=== PATIENT | female | born 1980 | race African-American/Black ===

== ENCOUNTER 2017-03-26 08:13 | Emergency (ER) | payer MEDICAID ==
[~2017-03-26] VITALS: Ht 165.1 cm; Wt 80.0 kg
[~2017-03-26 08:13] MED LIST: DIFL0.0512 LEFT EYE; MULTTAB67 PO; VIGA0.5D LEFT EYE
[2017-03-26 08:15] VITALS: BP 153/74; PULSE 78; RESP 16; TEMP 99.6; O2SAT 98
[2017-03-26] MEDS ORDERED: ONDANSETRON HCL 4 MG/2 ML VIAL IV PUSH ONE (08:45)
[2017-03-26] MEDS ORDERED: SODIUM CHLORIDE 0.9% FLUSH 10 ML FLUSH IVF PRN (08:45)
--- NOTE | 2017-03-26 08:45 | PD ---
HPI Chief Complaint: Headache Time Seen by Provider: 08:41 Travel History International Travel<30 days: No Contact w/Intl Traveler<30days: No Traveled to known affect area: No History of Present Illness HPI Patient is a 36-year-old female presenting to the emergency department for evaluation of headache, body aches, nausea, photophobia. Patient states her symptoms started yesterday, she denies any vomiting, diarrhea, abdominal pain, chest pain or shortness of breath, nasal congestion or sore throat. She states that she doesn't feel well overall. She reports a history of headaches but not consistent with what she is experiencing today. Patient states her headache is frontal and aching and she reports her pain is 8 out of 10. She denies any visual changes but is scheduled to have cataract surgery on her left eye tomorrow. PFSH Past Medical History Diminished Hearing: No Medical other: Yes (cataract in left eye) ?: Not LMP: 03/11/17 : 4 Para: 4 Tubal Ligation: Yes Past Surgical History Section: Yes (4) Gynecologic Surgery: Yes (bilateral tubal ligation) Social History Alcohol Use: Yes (on occasion) Tobacco Use: No Substance Use: No Allergies-Medications (Allergen,Severity, Reaction): Coded Allergies: No Known Allergies (Verified , 03/11/17) Reported Meds & Prescriptions Reported Meds & Active Scripts Active Vigamox Opth Drops (Moxifloxacin Opth Drops) 0.5 % Soln 1 Drop LEFT EYE QID Durezol Opth (Difluprednate Opth) 0.05% Emul 1 Drop LEFT EYE QID Reported Multiple Vitamin 1 Tab 1 Tab PO DAILY Review of Systems Except as stated in HPI: all other systems reviewed are Neg General / Constitutional: Positive: Fever, Chills HENT: Positive: Headaches, No: Sore Throat, Congestion Cardiovascular: No: Chest Pain or Discomfort Respiratory: No: Shortness of Breath Gastrointestinal: Positive: Nausea, No: Vomiting, Diarrhea, Abdominal Pain Genitourinary: No: Dysuria Musculoskeletal: Positive: Myalgias Neurologic: Positive: Weakness, No: Dizziness, Syncope Physical Exam Narrative GENERAL: Well-developed, well-nourished, alert female. Resting comfortably in no acute distress. SKIN: Focused skin assessment warm/dry. HEAD: Atraumatic. Normocephalic. EYES: Pupils equal and round. No scleral icterus. No injection or drainage. ENT: No nasal bleeding or discharge. Mucous membranes pink and moist. NECK: Trachea midline. No JVD. CARDIOVASCULAR: Regular rate and rhythm. No murmur appreciated. RESPIRATORY: No accessory muscle use. Clear to auscultation. Breath sounds equal bilaterally. GASTROINTESTINAL: Abdomen soft, non-tender, nondistended. Hepatic and splenic margins not palpable. MUSCULOSKELETAL: No obvious deformities. No clubbing. No cyanosis. No edema. NEUROLOGICAL: Awake and alert. No obvious cranial nerve deficits. Motor grossly within normal limits. Normal speech. PSYCHIATRIC: Appropriate mood and affect; insight and judgment normal. Data Data Last Documented VS Vital Signs Date Time Temp Pulse Resp B/P Pulse Ox O2 Delivery O2 Flow Rate FiO2 03/26/17 08:15 99.6 78 16 153/74 98 Orders Complete Blood Count With Diff (03/26/17 08:38) Basic Metabolic Panel (Bmp) (03/26/17 08:38) Group A Rapid Strep Screen (03/26/17 08:38) Influenzae A/B Antigen (03/26/17 08:38) Iv Access Insert/Monitor (03/26/17 08:38) Sodium Chloride 0.9% Flush (Ns Flush) (03/26/17 08:45) Ondansetron Inj (Zofran Inj) (03/26/17 08:45) Chest, Single Ap (03/26/17 ) MDM Medical Decision Making Medical Screen Exam Complete: Yes Emergency Medical Condition: Yes Medical Record Reviewed: Yes Interpretation(s) Vital Signs Date Time Temp Pulse Resp B/P Pulse Ox O2 Delivery O2 Flow Rate FiO2 03/26/17 08:15 99.6 78 16 153/74 98 Differential Diagnosis Viral syndrome versus URI versus bronchitis versus influenza versus strep pharyngitis versus sinusitis versus tension type headache versus other Narrative Course Patient's 36-year-old female initially seen in fast track with complaint of headache. Upon further assessment patient temp was reassessed at 100.1. This accompanied by nausea, body aches prompted a more complete workup. Patient will be moved to a medical bed for further evaluation and management. Mine Dempsey March 26, 2017 08:45
[2017-03-26 09:02] VITALS: BP 124/63; TEMP 98.5
--- NOTE | 2017-03-26 09:12 | PD ---
HPI Chief Complaint: Headache Time Seen by Provider: 08:46 Travel History International Travel<30 days: No Contact w/Intl Traveler<30days: No Traveled to known affect area: No History of Present Illness HPI 36yo F with PMH of migraine headache presents to the ED with c/o frontal headache for 2 days, generalized bodyache. +Nausea. +Photophobia. Denies any fever, rash, neck pain, chest pain, sob, vomiting, abdominal pain, focal weakness or numbness. Pt was initially seen in fast track and transferred to medical bed and as per PA's note, had T: 100.1. Repeat temperature was 98.5F and no medication was given. PFSH Past Medical History Medical History: Denies Significant Hx Diminished Hearing: No Medical other: Yes (cataract in left eye) Tetanus Vaccination: > 5 Years Influenza Vaccination: Yes ?: Not LMP: 03/11/17 : 4 Para: 4 Tubal Ligation: Yes Past Surgical History Surgical History: No Previous Surgery Section: Yes Gynecologic Surgery: Yes (bilateral tubal ligation) Social History Alcohol Use: No Tobacco Use: No Substance Use: No Allergies-Medications (Allergen,Severity, Reaction): Coded Allergies: No Known Allergies (Verified , 03/11/17) Reported Meds & Prescriptions Reported Meds & Active Scripts Active Vigamox Opth Drops (Moxifloxacin Opth Drops) 0.5 % Soln 1 Drop LEFT EYE QID Durezol Opth (Difluprednate Opth) 0.05% Emul 1 Drop LEFT EYE QID Reported Visine Maximum Redness Relief Opth Drops (Wvxcznmgauq-Fdgwmggf-Fccqxbysivsw Opth Drops) 0.05-0.2-0.36-1 % Soln 1 Drop LEFT EYE DAILY PRN Multiple Vitamin 1 Tab 1 Tab PO DAILY Review of Systems Except as stated in HPI: all other systems reviewed are Neg Physical Exam Narrative GENERAL: 36yo F in mild distress. SKIN: Focused skin assessment warm/dry. HEAD: Atraumatic. Normocephalic. +TTP right frontal sinus. EYES: Pupils equal and round at 3mm bilaterally. EOMI. No scleral icterus. No injection or drainage. ENT: No nasal bleeding or discharge. Mucous membranes pink and moist. NECK: No nuchal rigidity. CARDIOVASCULAR: Regular rate and rhythm. No murmur appreciated. RESPIRATORY: No accessory muscle use. Clear to auscultation. Breath sounds equal bilaterally. GASTROINTESTINAL: Abdomen soft, non-tender, nondistended. No rebound tenderness or guarding. MUSCULOSKELETAL: No obvious deformities. No clubbing. No cyanosis. No edema. NEUROLOGICAL: Awake and alert. No obvious cranial nerve deficits. Motor grossly within normal limits. Normal speech. PSYCHIATRIC: Appropriate mood and affect; insight and judgment normal. Data Data Last Documented VS Vital Signs Date Time Temp Pulse Resp B/P Pulse Ox O2 Delivery O2 Flow Rate FiO2 03/26/17 10:11 14 107/58 99 Room Air 03/26/17 09:02 98.5 03/26/17 08:15 78 Orders Complete Blood Count With Diff (03/26/17 08:38) Basic Metabolic Panel (Bmp) (03/26/17 08:38) Group A Rapid Strep Screen (03/26/17 08:38) Influenzae A/B Antigen (03/26/17 08:38) Iv Access Insert/Monitor (03/26/17 08:38) Sodium Chloride 0.9% Flush (Ns Flush) (03/26/17 08:45) Ondansetron Inj (Zofran Inj) (03/26/17 08:45) Chest, Single Ap (03/26/17 ) Ketorolac Inj (Toradol Inj) (03/26/17 09:15) Strep Culture (Group A) (03/26/17 08:56) Prochlorperazine Inj (Compazine Inj) (03/26/17 11:30) Acetaminophen (Tylenol) (03/26/17 11:30) Labs Laboratory Tests Test 03/26/17 08:54 White Blood Count 6.1 TH/MM3 Red Blood Count 4.17 MIL/MM3 Hemoglobin 10.6 GM/DL Hematocrit 32.1 % Mean Corpuscular Volume 77.1 FL Mean Corpuscular Hemoglobin 25.6 PG Mean Corpuscular Hemoglobin 33.2 % Concent Red Cell Distribution Width 17.5 % Platelet Count 473 TH/MM3 Mean Platelet Volume 8.5 FL Neutrophils (%) (Auto) 61.7 % Lymphocytes (%) (Auto) 26.0 % Monocytes (%) (Auto) 10.0 % Eosinophils (%) (Auto) 1.9 % Basophils (%) (Auto) 0.4 % Neutrophils # (Auto) 3.8 TH/MM3 Lymphocytes # (Auto) 1.6 TH/MM3 Monocytes # (Auto) 0.6 TH/MM3 Eosinophils # (Auto) 0.1 TH/MM3 Basophils # (Auto) 0.0 TH/MM3 CBC Comment DIFF FINAL Differential Comment Sodium Level 141 MEQ/L Potassium Level 3.8 MEQ/L Chloride Level 106 MEQ/L Carbon Dioxide Level 27.6 MEQ/L Anion Gap 7 MEQ/L Blood Urea Nitrogen 13 MG/DL Creatinine 0.83 MG/DL Estimat Glomerular Filtration 95 ML/MIN Rate Random Glucose 98 MG/DL Calcium Level 9.0 MG/DL [facility] Medical Decision Making Medical Screen Exam Complete: Yes Emergency Medical Condition: Yes Differential Diagnosis Migraine headache vs. sinus headache vs. influenza vs. viral illness Narrative Course 36yo well appearing female here with right sided headache and generalized bodyache for 2 days. Pt has ttp right frontal sinus. No fever. No nuchal rigidity. No neurologic deficits. Pt given zofran, toradol, acetaminophen and compazine and states that pain has improved. Headache has resolved but still with some generalized bodyaches. Denies any nausea. Labs reviewed, no leukocytosis. H/H low at 10.6/32.1 at baseline. BMP unremarkable. CXR showed no acute cardiopulmonary abnormality. Influenza negative. Group A strep negative. Return precautions given. Diagnosis Primary Impression: Sinus headache Patient Instructions: General Instructions Departure Forms: Tests/Procedures Additional Instructions: Please follow up with your PMD in 1-2 days. Return to the ED if symptoms worsen. Med/Other Pt SpecificInfo: Prescription(s) given Scripts Acetaminophen (Tylenol)325 Mg [id number] Mg PO Q6H PRN (PAIN SCALE 1 TO 4) #20 TAB Ref 0 Prov:Paulina Choi 03/26/17 Disposition: 01 DISCHARGE HOME Condition: Stable Paulina Choi DO March 26, 2017 09:12
[2017-03-26] MEDS ORDERED: KETOROLAC TROMETHAMINE 30 MG/ML (IVP) VIAL IV PUSH ONE (09:15)
[2017-03-26 09:17] LABS: AUTOMATED NEUTROPHIL # 3.8 TH/MM3 (1.8-7.7); BASOPHIL % 0.4 % (0.0-2.0); EOSINOPHIL # 0.1 TH/MM3 (0-0.4); EOSINOPHIL % 1.9 % (0.0-4.0); HEMATOCRIT 32.1 % (35.0-46.0); HEMO FLAGS DIFF FINAL; LYMPHOCYTE # 1.6 TH/MM3 (1.0-4.8); MEAN CELL VOLUME 77.1 FL (80.0-100.0); MEAN CORPUSCULAR HEMOGLOBIN 25.6 PG (27.0-34.0); MEAN CORPUSCULAR HGB CONC 33.2 % (32.0-36.0); NEUT % 61.7 % (16.0-70.0); PLATELET COUNT 473 TH/MM3 (150-450); RED BLOOD COUNT 4.17 MIL/MM3 (4.00-5.30); RED CELL DISTRIBUTION WIDTH 17.5 % (11.6-17.2); WHITE BLOOD COUNT 6.1 TH/MM3 (4.0-11.0)
[2017-03-26 09:28] LABS: BICARBONATE 27.6 MEQ/L (21.0-32.0); POTASSIUM 3.8 MEQ/L (3.5-5.1)
--- NOTE | 2017-03-26 09:35 | RADRPT ---
EXAM DATE/TIME: 03/26/2017 09:10 [place] COMPARISON: No previous studies available for comparison. INDICATIONS : Headache and dizziness for 2 days. MEDICAL HISTORY : None. SURGICAL HISTORY : None. ENCOUNTER: Initial ACUITY: 2 days PAIN SCORE: 0/10 LOCATION: Bilateral chest FINDINGS: Portable AP view of the chest demonstrates a normal-sized cardiac silhouette. No effusion, consolidat ion, or pneumothorax is visualized. The bones and soft tissues demonstrate no acute abnormality. Lung s are under inflated with subtle atelectasis at the bases. CONCLUSION: No acute cardiopulmonary abnormality is identified. Noah Barahona MD on March 26, 2017 at 9:33 Board Certified Radiologist. This report was verified electronically.
[2017-03-26 10:11] VITALS: BP 107/58; RESP 14; O2SAT 99
[2017-03-26] MEDS ORDERED: VISISOL LEFT EYE (11:06)
[2017-03-26] MEDS ORDERED: TYLE325T PO (11:26)
[2017-03-26] MEDS ORDERED: SODIUM CHLORID 0.9% 500 ML INJ 500 ML IV ONE (11:30)
[2017-03-26] MEDS ORDERED: PROCHLORPERAZINE INJ 10 MG/2 ML VIAL IV PUSH ONE (11:30)
[2017-03-26] MEDS ORDERED: ACETAMINOPHEN 325 MG TAB PO ONE (11:30)
[2017-03-26 11:42] VITALS: BP 111/57
== END 2017-03-26 12:08 | disposition home or self-care (01) ==
LOC: NEPE 08:13
DX: R51 Headache (principal); R11.0 Nausea
CPT/HCPCS: 71010; 80048; 85025; 87081; 87804; 87880; 96374; 96375; 99284; J0780; J1885; J2405; J7040

== ENCOUNTER → 2017-03-27 | Day surgery (SDC) | payer MEDICAID, OTHER ==
[~2017-03-27] VITALS: Ht 165.1 cm; Wt 79.5 kg
[~2017-03-27] MED LIST changes: +CYCLOPENTOLATE HCL 1% OPHT SOLN 2 ML BTL ONE; +FAMOTIDINE 20 MG/2 ML VIAL ONE; +MIDAZOLAM HCL 2 MG/2 ML VIAL ONE; +ONDANSETRON HCL 4 MG/2 ML VIAL IV PUSH ONE; +PHENYLEPHRINE HCL 10% OPTH SOLN 5 ML BTL ONE; +PROPOFOL 200 MG/20 ML AMP IV ONE; +SODIUM CHLORID 0.9% 500 ML INJ 500 ML ONE; +TETRACAINE 0.5% OPTH SOLN 4 ML BTL LEFT EYE ONE; +TETRACAINE 0.5% OPTH SOLN 4 ML BTL ONE; +TOBRAMYCIN/DEXAMETHASONE OPTH OINT 3.5 GM TUBE ONE; +TROPICAMIDE 1% OPHT SOLN 15 ML BTL ONE; +TYLE325T PO; +VISISOL LEFT EYE
[2017-03-27 07:07] VITALS: BP 150/94; PULSE 94; RESP 16; TEMP 98.9; O2SAT 100
--- NOTE | 2017-03-27 09:31 | PD.OP ---
Operative Report Date of Surgery: March 27, 2017 Preoperative Diagnosis: (1) Posterior subcapsular age-related cataract of left eye Postoperative Diagnosis: (1) Pseudophakia of left eye Procedure: phacoemulsification and intraocular lens implant left eye Anesthesia: General Surgeon: Gisele Maciel Web Manager(s): none Operation and Findings: Patient was consented for surgery and taken back to the operating room. She was put under general anesthesia and prepped and draped in the usual sterile fashion for ophthalmic surgery. A wire lid speculum was placed in the left eye. A paracentesis incision was created at the 5 o'clock position on the limbus. Vision blue dye and viscoelastic was injected into the anterior chamber. The main incision was created at the 2 o'clock position on the limbus with a 2.4 mm keratome. A continuous curvilinear capsulorrhexis was made on the anterior lens capsule. Hydrodissection was used to separate the lens from the capsule. Irrigation and aspiration was used to remove the nuclear and cortical material. The lens implant ([id number] [id number] SN [id number]) was placed in the capsular bag. Viscoelastic was removed with irrigation and aspiration. The incisions were irrigated and found to be watertight. Tobradex ointment, a patch, and shield were placed on the left eye. The patient was sent to PACU in stable condition. Gisele Maciel MD March 27, 2017 09:31
[2017-03-27 10:15] VITALS: BP 135/86; PULSE 89; RESP 15; TEMP 98.8; O2SAT 99
== END | disposition home or self-care (01) ==
LOC: PHSDC 06:06
PROVIDERS: ATTEND Ophthalmology
DX: H25.042 Posterior subcapsular polar age-related cataract, left eye (principal); H27.8 Other specified disorders of lens; I10 Essential (primary) hypertension
CPT/HCPCS: 00142; 66984; J2250; J2405; J7040; V2632

== ENCOUNTER 2017-06-05 14:43 | Emergency (ER) | payer MEDICAID ==
[~2017-06-05] VITALS: Ht 170.2 cm; Wt 80.0 kg
[~2017-06-05 14:43] MED LIST changes: -CYCLOPENTOLATE HCL 1% OPHT SOLN 2 ML BTL ONE; -FAMOTIDINE 20 MG/2 ML VIAL ONE; -MIDAZOLAM HCL 2 MG/2 ML VIAL ONE; -ONDANSETRON HCL 4 MG/2 ML VIAL IV PUSH ONE; -PHENYLEPHRINE HCL 10% OPTH SOLN 5 ML BTL ONE; -PROPOFOL 200 MG/20 ML AMP IV ONE; -SODIUM CHLORID 0.9% 500 ML INJ 500 ML ONE; -TETRACAINE 0.5% OPTH SOLN 4 ML BTL LEFT EYE ONE; -TETRACAINE 0.5% OPTH SOLN 4 ML BTL ONE; -TOBRAMYCIN/DEXAMETHASONE OPTH OINT 3.5 GM TUBE ONE; -TROPICAMIDE 1% OPHT SOLN 15 ML BTL ONE
[2017-06-05 14:45] VITALS: BP 126/79; PULSE 71; RESP 20; TEMP 98.4; O2SAT 99
--- NOTE | 2017-06-05 14:47 | PD ---
Physical Exam Date Seen by Provider: Jun 05, 2017 Time Seen by Provider: 14:46 Narrative 36 yo female here for possible allergic reaction. Eat some sushi and has had this since. Started on saturday. Rash and swelling to the face. Not better even with OTC meds. No SOB. Vitals are stable in triage. Awaiting Bed placement. Data Data Last Documented VS Vital Signs Date Time Temp Pulse Resp B/P Pulse Ox O2 Delivery O2 Flow Rate FiO2 06/05/17 14:45 98.4 71 20 126/79 99 Room Air [facility] Medical Record Reviewed: Yes Supervised Visit with ELSY: No Breezy Guillen Jun 05, 2017 14:47
[2017-06-05] MEDS ORDERED: IBUP800T23 PO (15:25)
[2017-06-05] MEDS ORDERED: PRED-503 PO (15:25)
[2017-06-05] MEDS ORDERED: ACYC800T PO (15:25)
--- NOTE | 2017-06-05 15:26 | PD ---
HPI Chief Complaint: Skin Problem Time Seen by Provider: 15:18 Travel History International Travel<30 days: No Contact w/Intl Traveler<30days: No Traveled to known affect area: No History of Present Illness HPI 36-year-old female presents to the emergency Department with complaint of blistering to her right upper lip since Saturday. She ate [place] food with chicken and shrimp in it on Saturday and thinks that it she may have had an allergic reaction to seafood. She denies having allergic reactions to seafood in the past. Reports history of fever blisters. Denies fever, vomiting. Denies airway edema, tongue edema, difficulty breathing, shortness of breath. Has tried topical Benadryl, toothpaste, preparation H for symptom management. Symptoms are mild in severity. No known allergies. Has no other medical complaints. No other modifying factors or associated signs and symptoms. PFSH Past Medical History Cancer: No Cardiovascular Problems: No Diabetes: No Diminished Hearing: No Endocrine: No Genitourinary: No Hepatitis: No Hiatal Hernia: No Immune Disorder: No Musculoskeletal: No Neurologic: No Psychiatric: No Reproductive: No Respiratory: No Thyroid Disease: No ?: Not : 4 Para: 4 Tubal Ligation: Yes Past Surgical History Abdominal Surgery: No AICD: No Cardiac Surgery: No Section: Yes Ear Surgery: No Endocrine Surgery: No Eye Surgery: No Genitourinary Surgery: No Gynecologic Surgery: Yes ( X 4, TUBAL LIGATION) Joint Replacement: No Oral Surgery: No Pacemaker: No Thoracic Surgery: No Social History Alcohol Use: No Tobacco Use: No Substance Use: No Allergies-Medications (Allergen,Severity, Reaction): Coded Allergies: No Known Allergies (Verified , 06/05/17) Reported Meds & Prescriptions Reported Meds & Active Scripts Active Acyclovir 800 Mg Tab 800 Mg PO 5 TIMES A DAY 7 Days Review of Systems Except as stated in HPI: all other systems reviewed are Neg Physical Exam Narrative GENERAL: Well-nourished, well-developed female patient, in no acute distress SKIN: Warm and dry. Grouped vesicular area to the right upper lip that extends just below the nose; the area is edematous; without surrounding erythema or signs of infection. HEAD: Atraumatic. Normocephalic. EYES: Pupils equal and round. No scleral icterus. No injection or drainage. ENT: Mucosa pink and moist. Airway patent. NECK: Trachea midline. No lymphadenopathy. CARDIOVASCULAR: Regular rate. RESPIRATORY: No accessory muscle use. GASTROINTESTINAL: Flat. MUSCULOSKELETAL: No obvious deformities. No clubbing. No cyanosis. No edema. NEUROLOGICAL: Awake and alert. Oriented 3. No obvious cranial nerve deficits. Motor grossly within normal limits. Normal speech. PSYCHIATRIC: Appropriate mood and affect; insight and judgment normal. Data Data Last Documented VS Vital Signs Date Time Temp Pulse Resp B/P Pulse Ox O2 Delivery O2 Flow Rate FiO2 06/05/17 14:45 98.4 71 20 126/79 99 Room Air MDM Medical Decision Making Medical Screen Exam Complete: Yes Emergency Medical Condition: Yes Medical Record Reviewed: Yes Differential Diagnosis Fever blisters, oral herpes, herpes simplex type I, shingles Narrative Course 36-year-old female physical exam consistent with oral herpes/cold sore to the right upper lip. Patient is afebrile and nontoxic-appearing. Denies fever, vomiting. Acyclovir prescribed for home. Instructed patient to follow up with primary care provider. Patient verbalizes understanding and agreement with treatment plan. Patient is medically cleared and stable for discharge. Discussed reasons to return to the emergency department. Patient agrees with treatment plan. The patients vital signs are stable and the patient is stable for outpatient follow-up and treatment. Patient discharged home, stable and in no acute distress. Diagnosis Primary Impression: Cold sore Referrals: Distribution Dispatcher Primary Care Physician Patient Instructions: General Instructions, Oral Herpes Simplex Virus Infections (ED) Additional Instructions: Medications as prescribed [id number] Abreva to affected area as directed and as needed Follow-up with primary care provider Follow-up with dermatology Return to the emergency department immediately with worsening of symptoms Med/Other Pt SpecificInfo: Prescription(s) given Scripts Acyclovir 800 Mg [id number] Mg PO 5 TIMES A DAY 7 Days Ref 0 Prov:Asiya Bates 06/05/17 Disposition: 01 DISCHARGE HOME Condition: Stable Asiya Bates Jun 05, 2017 15:26
== END 2017-06-05 15:45 | disposition home or self-care (01) ==
LOC: NEPK 14:43
DX: B00.1 Herpesviral vesicular dermatitis (principal)
CPT/HCPCS: 99283

== ENCOUNTER 2017-11-21 11:00 | Emergency (ER) | payer MEDICAID ==
[~2017-11-21] VITALS: Ht 165.1 cm; Wt 82.0 kg
[~2017-11-21 11:00] MED LIST changes: +ACYC800T PO; -DIFL0.0512 LEFT EYE; -MULTTAB67 PO; -TYLE325T PO; -VIGA0.5D LEFT EYE; -VISISOL LEFT EYE
[2017-11-21 11:02] VITALS: BP 139/89; PULSE 57; RESP 12; TEMP 98.8; O2SAT 100
--- NOTE | 2017-11-21 11:23 | PD ---
HPI Chief Complaint: Cold / Flu Symptoms Time Seen by Provider: 11:22 Travel History International Travel<30 days: No Contact w/Intl Traveler<30days: No Traveled to known affect area: No History of Present Illness HPI 37-year-old Afro[place] female presents the emergency department with one week history of flulike symptoms including headache, sore throat, postnasal drip , and cough which has been worsening over the past week. He states her upper respiratory symptoms have improved but she now has congestion, productive cough , and a sense of wheezing in her chest for the past several days. Patient is having difficulty sleeping secondary to her cough. She denies significant fever recently but has had chills. No nausea, vomiting, or diarrhea. She has no known drug allergies. PFSH Past Medical History Cancer: No Cardiovascular Problems: No Diabetes: No Diminished Hearing: No Endocrine: No Genitourinary: No Hepatitis: No Hiatal Hernia: No Immune Disorder: No Musculoskeletal: No Neurologic: No Psychiatric: No Reproductive: No Respiratory: No Thyroid Disease: No ?: Unknown LMP: 10/26/17 : 4 Para: 4 Tubal Ligation: Yes Past Surgical History Abdominal Surgery: No AICD: No Cardiac Surgery: No Section: Yes Ear Surgery: No Endocrine Surgery: No Eye Surgery: No Genitourinary Surgery: No Gynecologic Surgery: Yes ( X 4, TUBAL LIGATION) Joint Replacement: No Oral Surgery: No Pacemaker: No Thoracic Surgery: No Social History Alcohol Use: No Tobacco Use: No Substance Use: No Allergies-Medications (Allergen,Severity, Reaction): Coded Allergies: No Known Allergies (Verified Adverse Reaction, Unknown, 11/21/17) Reported Meds & Prescriptions Reported Meds & Active Scripts Active No Active Prescriptions or Reported Medications Review of Systems Except as stated in HPI: all other systems reviewed are Neg General / Constitutional: Positive: Fever, Chills Eyes: No: Visual changes HENT: Positive: Headaches, Sore Throat, Rhinitis, Rhinorrhea (now better), Congestion, No: Vertigo, Lightheadedness, Nosebleed, Neck Stiffness, Neck Pain, Dental Difficulties, Earache Cardiovascular: No: Chest Pain or Discomfort Respiratory: Positive: Cough, Shortness of Breath, Wheezing, No: Sneezing, Orthopnea, Hemoptysis, Night Sweats, Pleuritic Pain Gastrointestinal: No: Nausea, Vomiting, Diarrhea, Abdominal Pain Genitourinary: No: Dysuria Musculoskeletal: No: Pain Skin: No Rash Neurologic: No: Weakness Psychiatric: No: Depression Endocrine: No: Polydipsia Hematologic/Lymphatic: No: Easy Bruising Physical Exam Narrative GENERAL: Patient appears ill but not septic. SKIN: Warm and dry. Normal color. Normal turgor. No rash. HEAD: Atraumatic. Normocephalic. No sinus tenderness to palpation. EYES: Pupils equal and round. No scleral icterus. No injection or drainage. ENT: No nasal bleeding or discharge. Mucous membranes pink and moist. TMs are clear bilaterally. Pharynx is clear. Airway is patent. NECK: Trachea midline. Supple and nontender. CARDIOVASCULAR: Regular rate and rhythm. RESPIRATORY: No accessory muscle use. Diffuse wheezes with cough to auscultation. Breath sounds equal bilaterally. GASTROINTESTINAL: Abdomen soft, non-tender, nondistended. Hepatic and splenic margins not palpable. MUSCULOSKELETAL: Extremities without clubbing, cyanosis, or edema. No obvious deformities. NEUROLOGICAL: Awake and alert. No obvious cranial nerve deficits. Motor grossly within normal limits. Five out of 5 muscle strength in the arms and legs. Normal speech. PSYCHIATRIC: Appropriate mood and affect; insight and judgment normal. Data Data Last Documented VS Vital Signs Date Time Temp Pulse Resp B/P (MAP) Pulse Ox O2 Delivery O2 Flow Rate FiO2 11/21/17 11:02 98.8 57 12 139/89 (106) 100 Orders Orders Ed Discharge Order (11/21/17 11:38) [facility] Medical Decision Making Medical Screen Exam Complete: Yes Emergency Medical Condition: Yes Differential Diagnosis Upper respiratory infection. Cough. Wheeze. Bronchitis. Narrative Course Patient is medically stable at time of exam. Labs and radiographic imaging is not felt warranted today. Patient is treated for wheezy bronchitis with azithromycin Dosepak. Patient is given prednisone 20 mg daily for 5 days. Patient is given albuterol metered-dose inhaler 2 puffs every 4-6 hours when necessary cough and wheeze. Work note is given. Follow up if symptoms do not improve or worsen as needed. Diagnosis Primary Impression: Acute wheezy bronchitis Referrals: Primary Care Physician Patient Instructions: Acute Bronchitis (ED), General Instructions, How to Use a Metered-Dose Inhaler (ED), Wheezing (ED) Additional Instructions: Patient is medically stable at time of exam. Labs and radiographic imaging is not felt warranted today. Patient is treated for wheezy bronchitis with azithromycin Dosepak. Patient is given prednisone 20 mg daily for 5 days. Patient is given albuterol metered-dose inhaler 2 puffs every 4-6 hours when necessary cough and wheeze. Work note is given. Follow up if symptoms do not improve or worsen as needed. Med/Other Pt SpecificInfo: Prescription(s) given Scripts No Active Prescriptions or Reported Meds Disposition: 01 DISCHARGE HOME Condition: Stable Melvin Mar Nov 21, 2017 11:23
[2017-11-21] MEDS ORDERED: VENTAER INH (11:46)
[2017-11-21] MEDS ORDERED: AZIT250T3 PO (11:46)
[2017-11-21] MEDS ORDERED: PRED20 PO (11:46)
== END 2017-11-21 12:05 | disposition home or self-care (01) ==
LOC: NEPK 11:00
DX: J20.9 Acute bronchitis, unspecified (principal)
CPT/HCPCS: 99284